=== PATIENT | male | born 1970 | race Caucasian/White ===

== ENCOUNTER 2022-01-21 01:00 | Day surgery (SDC) | payer OTHER, SELFPAY ==
[2021-12-17 17:07] VITALS: BMI 27.9
[2022-01-18 09:50] VITALS: BMI 27.9
--- NOTE | 2022-01-18 09:56 | PC.NURSE ---
Report to the Outpatient Waiting Room, entrance under the green pavilion located off [facility], at time 0600 on date 01/21/22. OR Time: 0730. Time changes happen often and if your time is changed the preop area will call you the afternoon before. - You and your visitor will be asked to self-screen and do not enter if you have any COVID symptoms. - Only one visitor and NO children visitors are allowed at this time. - The patient visitor is requested to leave or wait in car when not with patient due to restrictions. - A mask is required within the hospital. Patients may have clear liquids (water, carbonated beverages, clear teas, apple juice) until 3 hours prior to surgery with a maximum of 20 ounces. - No food from midnight until time of surgery Take the following medications with a SIP of water the morning of surgery: NONE Medications to discontinue per physician: VITAMINS Date to take last dose: NO MORE UNTIL AFTER SURGERY Please no make-up, nail italian, hairspray, perfume, deodorant, or body powder the day of surgery. No jewelry (including any body piercings) or valuables the day of surgery, leave them at home. Please take a shower or bath the night before, or the morning of, surgery with an antibacterial soap. Wear comfortable, loose fitting clothing. - Jewelry must be removed prior to entering the operating room. Rings and piercings that are not removed may be cut off. - The hospital will not accept responsibility for valuables. - Please leave all valuables, including medications, at home the day of surgery. If you are going home after surgery, a licensed entry level truck driver must drive you home. - NO public transportation without another adult. - We recommend that an adult stay with you for 24 hours following discharge. - We also recommend that you do not drive, make important decision, drink alcoholic beverages, or take any drugs that were not prescribed by your health care provider for at least 24 hours after your discharge time. Follow any additional instructions given to you from your surgeon. If you or anyone in your household have experienced Covid symptoms in the past week, please notify your surgeon or the nurse liaison at the phone number below for possible testing. Telephone instructions given to PT - DANETTE KNOTT and asked if any additional questions and then verbalized understanding. Patient advised to call surgeon office or pre surgery nurse liaison [phone] if any additional questions.
--- NOTE | 2022-01-20 07:16 | P.HP_ITS ---
History of Present Illness History of Present Illness Consent: Risks, benefits, and alternatives have been discussed and questions answered. Patient agrees to proceed with procedure. Chief complaint: BPH Narrative: Pb Ingram is a 51 year old male who has been a patient in our practice since June 2021. He has longstanding prostatism that is responded only moderately to tamsulosin. PSA earlier this year was 1.2. Cystoscopy revealed a 2 cm prostatic urethra without median lobe enlargement. Transrectal ultrasonography shows a 30 0.8 g prostate. After discussion of therapeutic options including alternative medications, other minimally invasive surgical procedure such as Rezum and laser prostatectomy, he has elected to proceed with a Urolift. he is aware of the risk of this procedure including, but not limited to, adverse cardiopulmonary events, persistent irritable and/ or obstructive voiding symptoms, hematuria and the need to wear a catheter short- term. Review of Systems Cardiovascular: Cardiovascular: Denies chest pain, Denies lightheadedness, Denies palpitations and Denies dyspnea Respiratory: Respiratory: Denies dyspnea Gastrointestinal: Gastrointestinal: Denies diarrhea, Denies nausea and Denies vomiting Genitourinary: Genitourinary: Denies hematuria and Denies dysuria Endocrine: Endocrine: Denies palpitations PMFSH Social History Social History Smoking status: Never smoker Alcohol intake: current Drinks per week: 12 Substance use: never Substance use type: does not use Living arrangements: with family Spiritual care concerns: No Meds Home Medications and Allergies Home Medications Medication Instructions Recorded Confirmed Type atorvastatin 20 mg tablet 20 mg PO DAILY 12/17/21 01/18/22 History hyoscyamine sulfate 0.375 mg 0.375 mg PO BID 12/17/21 01/18/22 History tablet,extended release,12 hr multivit with minerals-iron 18 1 tablet PO DAILY 12/17/21 01/18/22 History mg-folic ac 400 mcg-vit K 25 mcg tablet (Adults Multivitamin) tamsulosin 0.4 mg capsule 0.4 mg PO DAILY 12/17/21 01/18/22 History zolpidem 10 mg tablet 10 mg PO HS PRN Insomnia 12/17/21 01/18/22 History Allergies Allergy/AdvReac Type Severity Reaction Status Date / Time No Known Allergies Allergy Verified 01/18/22 09:51 Exam Const: General: no acute distress Resp: Effort & Inspection: normal respiratory effort GI: Inspection: non-distended GI Palp: No abdominal tenderness and No Guarding due to palpation present (GI) Auscultation: normal bowel sounds Assessment and Plan Assessment and plan (1) BPH loc w urin obs/LUTS: Code(s): N40.1 - Benign prostatic hyperplasia with lower urinary tract symptoms Status: Acute Assessment and Plan: * UroLift
[2022-01-21 06:19] VITALS: BP 137/73; PULSE 76; RESP 18; TEMP 36.3; O2SAT 100
--- NOTE | 2022-01-21 06:41 | ECG_ITS ---
Measurements Intervals [place] Rate: 71 P: 70 AK: 146 QRS: -5 QRSD: 97 T: 21 QT: 371 QTc: 404 Interpretive Statements SINUS RHYTHM CANNOT RULE OUT SEPTAL INFARCT, AGE INDETERMINATE BASELINE ARTIFACT- I, II, AVR, AVL, AVF, V1 ABNORMAL ECG NO PREVIOUS ECG AVAILABLE FOR COMPARISON Electronically Signed On 01-21-2022 8:00:22 CDT by Sebastián Shaw D.O.
--- NOTE | 2022-01-21 06:42 | WPDANESEPPF ---
Anes - Initial Pre Proc Eval Procedure: Operation Date: 01/21/22 07:30 Proposed Procedures p Urolift - Chang Blount MD Date/Time: 01/21/22 06:42 Surgeon: Chang Blount MD Pre Op Diagnosis: BPH Patient Data Age: 51 Gender: M Height: 1.8 m Weight: 92.4 kg Last Vital Signs Temp 36.3 C L 01/21/22 06:19 Pulse 76 01/21/22 06:19 Resp 18 01/21/22 06:19 BP 137/73 01/21/22 06:19 Pulse Ox 100 01/21/22 06:19 O2 Del Method Room Air 01/21/22 06:19 Allergies Allergy/AdvReac Type Severity Reaction Status Date / Time No Known Allergies Allergy Verified 01/21/22 06:16 Home Medications Medication Instructions Recorded Confirmed Type atorvastatin 20 mg tablet 20 mg PO DAILY 12/17/21 01/21/22 History hyoscyamine sulfate 0.375 mg 0.375 mg PO BID 12/17/21 01/21/22 History tablet,extended release,12 hr multivit with minerals-iron 18 1 tablet PO DAILY 12/17/21 01/21/22 History mg-folic ac 400 mcg-vit K 25 mcg tablet (Adults Multivitamin) tamsulosin 0.4 mg capsule 0.4 mg PO DAILY 12/17/21 01/21/22 History zolpidem 10 mg tablet 10 mg PO HS PRN Insomnia 12/17/21 01/21/22 History Patient hx anesthesia problems: none Family hx anesthesia problems: none Results Review: All pre-operative results and documents have been reviewed as part of the pre-operative evaluation. [facility] Past Medical History Medical History (Updated 01/21/22 @ 06:43 by David Porter MD) Hyperlipidemia Overweight Surgical History Surgical History (Updated 01/21/22 @ 06:45 by David Porter MD) H/O colonoscopy History of appendectomy Social History Social History Smoking status: Never smoker Alcohol intake: current Drinks per week: 12 Substance use: never Substance use type: does not use Living arrangements: with family Spiritual care concerns: No Anes - Eval Final PreProcedure Day of Procedure 01/21/22 06:42 Patient weight: overweight Heart: regular rate and rhythm Lungs: clear to auscultation Airway: Mallampati scale class II Neurological: alert and oriented Last oral intake: >/= 8 hours ASA classification: II Emergent: no Anesthetic plan: proceed Anesthesia type and monitoring: general GIVS and standard monitoring Results Review: All pre-operative results and documents have been reviewed as part of the pre-operative evaluation. Informed Consent: The patient's anesthetic plan and its attendant risks and benefits were discussed with the patient/family/POA. Questions were solicited and answers provided to the satisfaction of the patient/family/POA.
[2022-01-21] MEDS: LACTATED RINGERS 1,000 ML 30 ML IV CONT (06:43)
--- NOTE | 2022-01-21 06:44 | WPDHPUPDATE1 ---
History and Physical Update Update Date/Time: 01/21/22 06:44 History and Physical has been reviewed, including an updated exam of the patient. There are NO changes in the patient's condition. Risks, benefits, and alternatives have been discussed and questions answered. Patient agrees to proceed with procedure.
[2022-01-21] MEDS: ceFAZolin 2 GM/D5W 50 ML 2 GM/50 ML BAG IVPB (07:29)
[2022-01-21] MEDS: LIDOCAINE HCL 2% GEL UROJET 10 ML PKG MUCOUS MEM (07:29)
--- NOTE | 2022-01-21 08:01 | W.PM.PROC2 ---
Procedure Note - Detailed Date of Procedure 01/21/22 Pre-op Diagnosis BPH Post-op Diagnosis Same Procedure Performed UroLift Surgeon Chang Blount MD Description of Procedure The patient was prepped and draped in a routine fashion after the uneventful induction of a general LMA anesthetic. A 20F cystoscope was inserted into the bladder. The cystoscopy bridge was replaced with a UroLift delivery device. The first treatment site was the patient's right side approximately 2.0cm distal to the bladder neck. The distal tip of the delivery device was then angled laterally approximately 20 degrees at this position to compress the lateral lobe. The trigger was pulled, thereby deploying a needle containing the implant through the prostate. The needle was then retracted, allowing one end of the implant to be delivered to the capsular surface of the prostate. The implant was then tensioned to assure capsular seating and removal of slack monofilament. The device was then angled back toward midline and slowly advanced proximally (typically 3 to 4 mm) until cystoscopic verification of the monofilament being centered in the delivery bay. The urethral end piece was then affixed to the monofilament thereby tailoring the size of the implant. Excess filament was then severed. The delivery device was then re-advanced into the bladder. The delivery device was then replaced with cystoscope and bridge and the implant location and opening effect was confirmed cystoscopically. The same procedure was then repeated on the left side. At this point cystoscopic examination revealed somewhat of a [place] appearance at the bladder neck but an open prostatic urethra near the verumontanum. I opted to stent 2 additional implants in the more proximal lateral lobe so as to open the bladder neck. These were deployed in a similar fashion as described above. Thereafter there was a visible anterior channel throughout the length of the prostatic urethra. Therefore, a total of 4 implants were delivered. A final cystoscopy was conducted first to inspect the location and state of each implant and second, to confirm the presence of a continuous anterior channel was present through the prostatic urethra with irrigation flow turned off. The bladder was then filled with 150 cc irrigation fluid to assist the patient in void trial after the procedure, and all instruments were removed. At this point the cystoscope was removed and the patient was taken to the PACU in good condition. Drains No Pathology Yes Complications No immediate complications Condition Stable Disposition PACU
[2022-01-21 08:04] VITALS: BP 124/86; PULSE 80; RESP 16; O2SAT 98
[2022-01-21] MEDS: oxyCODONE HCL (*CRX) 5 MG TAB IR PO (08:26)
[2022-01-21 08:30] VITALS: BP 129/86; PULSE 76; RESP 20
[2022-01-21 09:00] VITALS: BP 145/88; PULSE 73; RESP 20
== END 2022-01-21 09:03 | disposition home or self-care (01) ==
PROVIDERS: Visit Provider Urology
PROC: 0T7D8DZ Dilation of Urethra with Intraluminal Device, Via Natural or Artificial Opening Endoscopic (ICD-10-PCS; CPT 52441; principal; 2022-01-21 07:30)
DX: N40.1 Benign prostatic hyperplasia with lower urinary tract symptoms (principal); R39.11 Hesitancy of micturition; R39.198 Other difficulties with micturition; R39.12 Poor urinary stream; E78.5 Hyperlipidemia, unspecified
CPT/HCPCS: 52441; 52442 ×3; 93005; A9270; J0690; J1100; J2250; J2405; J2704; J3010; J7120; L8699